=== PATIENT | female | born 1955 | race Caucasian/White ===

== ENCOUNTER 2018-12-22 19:04 | Observation (INO) | payer BC ==
[~2018-12-22] VITALS: Ht 154.9 cm; Wt 57.3 kg
[2018-12-22 19:46] LABS: BASOPHILS ABSOLUTE AUTO 0.03 K/mm3 (0.00-0.23); BASOPHILS PERCENT AUTO 0 % (0-2); EOSINOPHILS PERCENT AUTO 0 % (0-6); Hemoglobin 14.6 g/dL (11.5-16.0); IMMATURE GRAN ABSOLUTE AUTO 0.02 K/mm3 (0.00-0.10); IMMATURE GRAN PERCENT AUTO 0 % (0-1); LYMPHOCYTES ABSOLUTE AUTO 1.73 K/mm3 (0.84-5.20); LYMPHOCYTES PERCENT AUTO 20 % (21-46); MONOCYTES ABSOLUTE AUTO 0.49 K/mm3 (0.16-1.47); MONOCYTES PERCENT AUTO 6 % (4-13); Mean Corpuscular HGB 30.9 pg (26.0-34.0); Mean Corpuscular Volume 91 fL (80-100); Mean Platelet Volume 9.9 fL (9.1-12.4); NEUTROPHILS ABSOLUTE AUTO 6.56 K/mm3 (1.96-9.15); NEUTROPHILS PERCENT AUTO 74 % (41-73); Platelet Count 283 K/mm3 (150-400); RDW Coefficient Variation 12.6 % (11.7-14.2); RDW Standard Deviation 42.2 fL (35.1-46.3); Red Blood Cell Count 4.72 M/mm3 (3.80-5.20); White Blood Cell Count 8.83 K/mm3 (4.00-11.30)
[2018-12-22] MEDS ORDERED: PRED10 PO (19:49)
[2018-12-22 20:05] LABS: Alanine Aminotransfer (ALT/SGP 14 U/L (12-78); Albumin, Blood 4.5 g/dL (3.4-5.0); Albumin/Globulin Ratio 1.2 (0.8-1.8); Alk Phos 69 U/L (50-136); Anion Gap 6 mmol/L (6-16); Aspartate Aminotrans (AST/SGOT 17 U/L (12-37); Bilirubin, Total 0.3 mg/dL (0.1-1.0); Blood Urea Nitrogen 22 mg/dL (8-24); Bun/Creatinine Ratio 27.1 (12.0-20.0); CO2, Blood 28 mmol/L (21-32); Calcium, Blood 9.6 mg/dL (8.5-10.1); Chloride, Blood 105 mmol/L (98-108); Creatinine, Blood 0.81 mg/dL (0.40-1.00); Globulin, Blood 3.6 g/dL (2.2-4.0); Glomerular Filtration Rate >60 (60-); Glucose, Blood 116 mg/dL (70-99); Potassium, Blood 3.9 mmol/L (3.5-5.5); Sodium, Blood 139 mmol/L (136-145); Total Protein, Blood 8.1 g/dL (6.4-8.2); Troponin I <0.015 ng/mL (0.000-0.040)
[2018-12-23 02:14] LABS: CHOL/HDL RATIO 2.7; Cholesterol 273 mg/dL (50-200); HDL Cholesterol 100 mg/dL (>39); LDL/HDL RATIO 1.6; Low Density Lipoprotein Chol 160 mg/dL (0-110); Triglycerides 64 mg/dL (30-160); Very Low Density Lipoprot Chol 12 mg/dL (6-32)
--- NOTE | 2018-12-23 04:56 | NUR ---
SHIFT SUMMARY PT NEW ED ADMIT THIS EVENING. PLEASANT AND COOPERATIVE. DENIES CHEST PAIN SINCE ADMITTED. NO SOB OR DIAPHORESIS. PT REPORTED THAT CHEST PAIN WAS MIDSTERNAL AND RADIATED UP HER NECK WHEN FIRST ARRIVING TO ED. THIS RESOLVED SHORTLY AFTER. PT NPO FOR STRESS TEST TODAY. VITAL SIGNS STABLE. PT'S AT BEDSIDE THROUGHOUT THE NIGHT. WILL CONTINUE TO MONITOR.
--- NOTE | 2018-12-23 19:25 | NUR ---
SHIFT SUMMARY: NO ACUTE CHANGES TO REPORT THIS SHIFT. PT A&O; CALM AND COOPERATIVE WITH CARE. NO C/O PAIN OR NAUSEA THIS SHIFT. TELE IN PLACE; SR @ 70 PER OPERATIONS AND MAINTENANCE SPECIALIST. PLANNED STRESS TEST RESCHEDULED TO 12/24 R/T EQUIPMENT DIFFICULTIES; NO CAFFEINE ALLOWED-PT AWARE; PT NPO AFTER BREAKFAST 12/24. REPORT GIVEN TO ONCOMING RN.
--- NOTE | 2018-12-23 21:15 | NUR ---
2100 STATES THAT SHE FELT A SHARP SQUEEZE TO BOTH SIDES OF HER CHEST. AND BECAME SLIGHTLY DIAPHORETIC. DID NOT RATE THE PAIN, AND STATED DID NOT WANT ANYTHING FOR THE PAIN. STATED IT FELT THOUGH THE SYMPTOMS WERE SUBSIDING. CALLED [facility]U [facility] AND THEY STATED THAT PATIENT DID NOT HAVE ANY RHYTHM CHANGES JUST AN INCREASE IN RATE FROM 60-70. PATIENT CURRENTLY RUNNING NSR @ 60. WCTM.
[2018-12-24 05:40] LABS: BASOPHILS ABSOLUTE AUTO 0.04 K/mm3 (0.00-0.23); BASOPHILS PERCENT AUTO 0 % (0-2); EOSINOPHILS ABSOLUTE AUTO 0.03 K/mm3 (0.00-0.68); EOSINOPHILS PERCENT AUTO 0 % (0-6); Hematocrit 40.5 % (33.0-51.0); Hemoglobin 13.1 g/dL (11.5-16.0); IMMATURE GRAN ABSOLUTE AUTO 0.03 K/mm3 (0.00-0.10); IMMATURE GRAN PERCENT AUTO 0 % (0-1); LYMPHOCYTES ABSOLUTE AUTO 1.94 K/mm3 (0.84-5.20); LYMPHOCYTES PERCENT AUTO 20 % (21-46); MONOCYTES ABSOLUTE AUTO 0.69 K/mm3 (0.16-1.47); MONOCYTES PERCENT AUTO 7 % (4-13); Mean Corpuscular HGB 30.3 pg (26.0-34.0); Mean Corpuscular HGB Conc 32.3 g/dL (31.5-36.5); Mean Platelet Volume 10.3 fL (9.1-12.4); NEUTROPHILS ABSOLUTE AUTO 6.78 K/mm3 (1.96-9.15); NEUTROPHILS PERCENT AUTO 71 % (41-73); Platelet Count 262 K/mm3 (150-400); RDW Coefficient Variation 12.6 % (11.7-14.2); RDW Standard Deviation 43.8 fL (35.1-46.3); Red Blood Cell Count 4.32 M/mm3 (3.80-5.20); White Blood Cell Count 9.51 K/mm3 (4.00-11.30)
[2018-12-24 05:41] LABS: Mean Corpuscular Volume 94 fL (80-100)
[2018-12-24 06:08] LABS: Anion Gap 6 mmol/L (6-16); Blood Urea Nitrogen 26 mg/dL (8-24); Bun/Creatinine Ratio 35.9 (12.0-20.0); CO2, Blood 26 mmol/L (21-32); Calcium, Blood 8.9 mg/dL (8.5-10.1); Chloride, Blood 109 mmol/L (98-108); Creatinine, Blood 0.73 mg/dL (0.40-1.00); Glomerular Filtration Rate >60 (60-); Glucose, Blood 103 mg/dL (70-99); Potassium, Blood 4.2 mmol/L (3.5-5.5); Sodium, Blood 141 mmol/L (136-145); Troponin I <0.015 ng/mL (0.000-0.040)
[2018-12-24 06:12] LABS: Thyroid Stimulating Hormone 0.821 uIU/mL (0.360-4.800)
--- NOTE | 2018-12-24 06:20 | NUR ---
SHIFT SUMMARY A/O, ABLE TO MAKE NEEDS KNOWN. COOPERATIVE WITH CARE. CALLS AND ANSWERS QUESTIONS APPROPRIATELY. C/O PAIN/DISCOMFORT TO CHEST (SEE PREV ANA NOTE). REMAINS INDEPENDENT IN THE ROOM. VSS/AFEBRILE. NO OTHER CHANGES. CALL LIGHT AND BELONGINGS WITHIN REACH. WCTM. REPORT TO ONCOMING RN.
--- NOTE | 2018-12-24 07:31 | NUR ---
ASSUMED CARE OF PT- BEDSIDE REPORT COMPLETE WITH NIGHT RN CHRISTINA. PER REPORT PT HAD AN EPISODE OF CHEST PRESSURE AROUND 9PM WITH DIAPHORESIS, PER REPORT FROM RN AND PT THE EPISODE WAS SHORT LIVED, NO NITRO NEEDED AND SYMPTOMS RESOLVED, PER TELE PT HR INCREASED BY ABOUT 10BPM TO 70'S, NO OTHER CHANGES. PT IS ALERT, ORIENTED AND INDEPENDENT IN THE ROOM. SPOUSE ARRIVED AFTER SHIFT CHANGE AND IS AT THE BEDSIDE. RECIEVED A CALL FROM [facility], PT NPO EXCEPT FOR WATER AND ICE CHIPS AFTER 0800. PROVIDED PT WITH A HALF SANDWITCH AND YOGURT. SOLAR LAB TECHNICIAN AWARE PT WILL NOT NEED BREAKFAST TRAY.
[2018-12-24] MEDS ORDERED: PRED20 PO (19:09)
[2018-12-24] MEDS ORDERED: ABAT250V (19:09)
[2018-12-24] MEDS ORDERED: ATOR40TA PO (19:10)
[2018-12-24] MEDS ORDERED: ASPI81CH PO (19:10)
[2018-12-24] MEDS ORDERED: ATEN25 PO (19:11)
== END 2018-12-24 19:30 | disposition home or self-care (01) ==
LOC: ER 19:04 → MEDS 19:05
PROVIDERS: Emergency Medicine; Family Medicine; Nurse Practitioner Acute Care; ADMIT Family Medicine
DX: R07.9 Chest pain, unspecified (principal); R94.31 Abnormal electrocardiogram [ECG] [EKG]; I10 Essential (primary) hypertension; M54.9 Dorsalgia, unspecified; J84.9 Interstitial pulmonary disease, unspecified; Z79.82 Long term (current) use of aspirin; Z79.52 Long term (current) use of systemic steroids; Z79.899 Other long term (current) drug therapy
CPT/HCPCS: 36415; 71045; 78452; 80048; 80053; 80061; 83036; 83690; 83735; 83880; 84443; 84484; 85025; 93005; 93010; 93017; 93306; 96374; 99285-25; A9500

== ENCOUNTER 2022-09-17 06:53 | Day surgery (SDC) | payer OTHER ==
[~2022-09-17] VITALS: Ht 154.9 cm; Wt 53.4 kg
[~2022-09-17 06:53] MED LIST: ABAT250V; ASPI81CH PO; ATEN25 PO; ATOR40TA PO; PRED10 PO; PRED20 PO
[2022-09-17] MEDS ORDERED: ALEN70 PO (07:07)
== END 2022-09-17 08:50 | disposition home or self-care (01) ==
LOC: ORSCSDS 06:53
PROVIDERS: Student in an Organized Health Care Education/Training Program
PROC: 08RK3JZ Replacement of Left Lens with Synthetic Substitute, Percutaneous Approach (ICD-10-PCS; principal; 2022-09-17 08:15)
DX: H25.12 Age-related nuclear cataract, left eye (principal)
CPT/HCPCS: J2001; J2250; J3010; J7040; V2632

== ENCOUNTER 2022-10-01 07:24 | Day surgery (SDC) | payer OTHER ==
[~2022-10-01] VITALS: Ht 154.9 cm; Wt 53.5 kg
[~2022-10-01 07:24] MED LIST changes: +ALEN70 PO
--- NOTE | 2022-10-01 07:44 | NUR ---
10/01/22 0744 [place] Brown CALL LIGHT WITHIN REACH. ANITHA IN RIGHT EYE AT 0743 AND REBECCA AT 0744
== END 2022-10-01 09:35 | disposition home or self-care (01) ==
LOC: ORSCSDS 07:24
PROVIDERS: Student in an Organized Health Care Education/Training Program
PROC: 08RJ3JZ Replacement of Right Lens with Synthetic Substitute, Percutaneous Approach (ICD-10-PCS; principal; 2022-10-01 09:00)
DX: H25.11 Age-related nuclear cataract, right eye (principal); Z96.1 Presence of intraocular lens; E78.00 Pure hypercholesterolemia, unspecified; Z79.899 Other long term (current) drug therapy
CPT/HCPCS: J2001; J2250; J3010; J7040; V2632

== ENCOUNTER → 2024-02-02 | Outpatient (CLI) | payer OTHER ==
[2024-02-02 14:11] LABS: Free Thyroxine 1.02 ng/dL (0.70-1.60); Progesterone 0.315 ng/mL; Thyroid Stimulating Hormone 2.92 uIU/mL (0.360-4.800)
[2024-02-03 17:23] LABS: ESTRADIOL BY IMMUNOASSAY <20 pg/mL
== END | disposition home or self-care (01) ==
LOC: LAB 11:23 → LAB SHORT 11:23
PROVIDERS: Family Medicine
DX: N95.1 Menopausal and female climacteric states (principal); R53.83 Other fatigue
CPT/HCPCS: 82670; 84144; 84439; 84443